=== PATIENT | female | born 1980 | race Caucasian/White ===

== ENCOUNTER 2016-03-23 13:54 | Day surgery (SDC) | payer OTHER ==
[~2016-03-23] VITALS: Ht 172.7 cm; Wt 70.0 kg
[2016-03-23] VITALS (10 sets, daily range): BP systolic 107–134; BP diastolic 57–73; PULSE 79–127; RESP 13–24; O2SAT 96–100
--- NOTE | 2016-03-23 07:02 | PCM.HPANE ---
Patient Data Surgeon Admitting Provider: Attending Provider:Alfredo Harrington MD Primary Care Physician:Tiesha Infante PA-C Other Provider:Frances Forbes Anesthesia Reason for Visit Epigastric Pain Ht/WT & BMI Body Mass Index Allergies Coded Allergies: hydromorphone (Verified Allergy, Severe, 01/05/09) iodine (Verified Allergy, Severe, 01/05/09) latex (Verified Allergy, Severe, 01/05/09) morphine (Verified Allergy, Severe, PT STATES THAT IT "ITCHES HER FACE OFF ", 01/05/09) Uncoded Allergies: EXPECTORANTS (Allergy, Severe, 12/29/03) Iodine (Allergy, Severe, 12/29/03) Latex (Allergy, Severe, 12/29/03) Morphine (Allergy, Severe, 12/29/03) IODINE (Allergy, Unknown, 12/29/03) NKA (Allergy, Unknown, 12/29/03) Medications Reported Medications Diazepam (Valium)10 Mg Kxswwr03 Mg PO TID PRN For Anxiety 30 Days Ref 0 03/22/16 Tramadol ER 300 Mg Tab.er.16y190 Mg PO HS Ref 0 03/22/16 oxyCODONE-Acetaminophen 10-325 mg 1 Each Tablet1 Tablet PO Q6H PRN For Pain Ref 0 03/22/16 Omeprazole 40 Mg Capsule.dr40 Mg PO DAILY Ref 0 03/22/16 Methylphenidate HCl (Methylphenidate HCl ER)30 Mg Cpbp.30.7030 Mg PO 03/22/16 hydrOXYzine Hcl (HydrOXYzine Hcl)25 Mg Htlpta27 Mg PO TID PRN For Itching Ref 0 03/22/16 Clindamycin Phosphate (Clindamycin Phosphate Gel)30 Gm Gel..gram.1 Applic TP BID #30 GM Ref 0 03/22/16 Ciclopirox Olamine (Ciclopirox)15 Gm Cream..g.15 Gm TP 03/22/16 Cholecalciferol (Vitamin D3) (Vitamin D3)5,000 Unit Tablet5,000 Unit PO 03/22/16 Cetirizine HCl (Zyrtec)10 Mg Piquuzu52 Mg PO HS #30 CAPSULE Ref 0 03/22/16 Discontinued Reported Medications Terbinafine 250 Mg Knunkw174 Mg PO DAILY 03/22/16 Stop/Bang Risk Assessment Category Category 1A: Patient has history of documented sleep apnea, and HAS NOT received any narcotic, sedative or anesthesia administration during this stay. Category 1B: Patient has history of documented sleep apnea, and HAS received any narcotic , sedative or anesthesia administration during this stay Category 2: Patient has SUSPECTED Obstructive Sleep Apnea, and HAS received any narcotic , sedative or anesthesia administration during this stay. Category 3: Patient has SUSPECTED Obstructive Sleep Apnea and HAS NOT received narcotic, sedative or anesthesia administration during this stay. Category 4: Outpatient in Procedural Areas with known sleep apnea or who screen positive for High Risk via the STOP/BANG questionnaire. Exam Exam General Appearance: Alert, Oriented X3, Cooperative HEENT/AIRWAY: MP 2, Neck Movement (FROM), Mouth Opening (WNL) Lungs: Clear to Auscultation Heart: Exam Unremarkable Plan Impression Patient chart reviewed, patient interviewed and anesthestic plan with risks, benefits, and alternatives discussed, and informed consent obtained. ASA Physical Status: ASA2 Mod Systemic Disease Anesthetic Plan: GA Bene/Risks/Altern/Consents: Yes HP Complete Prior to Induction: Yes Dez Vanegas MD Mar 23, 2016 07:01
[~2016-03-23 13:54] MED LIST: CETI10CA PO; CHOL500011 PO; CICL15CR12 TP; CLIN30GE2 TP; DIAZ10TA PO; HYDR-656 PO; Lactated Ringer's 1,000 ML IV ONE; METH30CP PO; OMEP40CA36 PO; OXYC-466 PO; TERB250T11 PO; TRAM300T17 PO
[2016-03-23] MEDS ORDERED: Propofol 10,000 mCg/mL 20 mL Inj ONE (13:55)
[2016-03-23] MEDS ORDERED: fentaNYL-PF 50 mCg/mL 2 mL Inj ONE (13:55)
[2016-03-23] MEDS ORDERED: Ketamine 10 mg/mL 20 mL Inj ONE (13:55)
[2016-03-23] MEDS ORDERED: Lactated Ringer's 1,000 ML IV SCH (14:36)
[2016-03-23] MEDS ORDERED: MetoCLOpramide 5 mg/mL 2 mL Inj IVPUSH PRN (14:40)
[2016-03-23] MEDS ORDERED: Ondansetron 2 mg/mL 2 mL Inj IVPUSH PRN (14:40)
--- NOTE | 2016-03-23 15:26 | PCM.ANEP1 ---
Post Anesthesia Phase 1 PACU Phase 1 Assessment Vital Signs Vital Signs Date Time Temp Pulse Resp B/P Pulse Ox O2 Delivery O2 Flow Rate FiO2 03/23/16 15:22 95 14 114/70 98 Room Air 03/23/16 15:13 93 16 116/68 98 Room Air 03/23/16 15:02 79 16 116/62 96 Room Air 03/23/16 14:29 86 120/57 100 Room Air Anesthetic Administered: GA Level of Alertness: Awake, talking POLLOCK's with Equal Strength: Yes Pain: No Nausea or Vomiting: No Oxygen Delivery: Room Air Lungs: Clear to Auscultation Dez Vanegas MD Mar 23, 2016 15:26
--- NOTE | 2016-03-23 15:27 | PCM.ANEP2 ---
Post Anesthesia Evaluation ASA/CMS Post Anesthesia VS in Patient's Normal Range?: Yes Resp Stable; Airway Patent?: Yes CV Function & Hydration Stable: Yes Mental Status Recovered?: Yes Pain control Satisfactory?: Yes N/V Control Satisfactory?: Yes Dez Vanegas MD Mar 23, 2016 15:27
--- NOTE | 2016-03-23 15:50 | ENDO ---
[address] [address] ENDOSCOPY PROCEDURE PATIENT: MICHELE ORTIZ : 1980 MR#: [id number] ADMIT: 03/23/2016 JOB ID: [id number] DATE: 03/23/2016 PROCEDURE: Esophagogastroduodenoscopy. INDICATION: Epigastric pain. Please see Dr. Dez Vanegas' anesthesia report for details regarding ASA classification, Mallampati score and medications. INSTRUMENT USED: GIF H 180 J. PROCEDURE DETAILS: After informed consent was obtained, the patient was brought into the GI suite, where she was placed on oxygen via nasal cannula and monitored with continuous pulse oximeter, telemetry and blood pressure monitoring. A time-out was performed. Then, she was placed in a left lateral decubitus position. A bite block was placed. The standard EGD scope was inserted through the bite block and advanced under direct visualization to the second portion of duodenum without difficulty. FINDINGS: 1. Normal appearing duodenal bulb, first and second portion. Multiple random biopsies were obtained to evaluate for possibility of celiac disease. 2. Normal-appearing pylorus. In the antrum and body of the stomach, there were a few erosions. Multiple biopsies were obtained. 3. The mucosa in the antrum and body of stomach was mildly erythematous suggestive of mild gastritis. 4. Retroflexed views the gastric body revealed a normal-appearing cardia and fundus. 5. Normal-appearing GE junction with a regular Z-line at 41 cm. 6. Normal-appearing esophagus. IMPRESSION: Mild gastritis with erosions. RECOMMENDATIONS: 1. Await biopsy results. 2. Continue PPI. 3. Follow up in GI clinic in 2-4 weeks. COMPLICATIONS: None. ESTIMATED BLOOD LOSS: Less than 5 mL.
--- NOTE | 2016-03-27 12:16 | PATH ---
SURGICAL PATHOLOGY Attending Physician:Manuela Smith CASE STATUS: Signed Out PATIENT NAME: MICHELE JUAREZ PID: [id number] : 1980 DATE COLLECTED:03/23/2016 00:00 SPECIMEN: 1: Duodenum, Biopsy 2: Gastric, Biopsy CLINICAL HISTORY: A: DUODENUM BIOPSY B: RANDOM GASTRIC BIOPSY FINAL DIAGNOSIS: 1.DUODENUM BIOPSY: CHANGES OF MILD CHRONIC DUODENITIS WITH AREAS OF FOVEOLAR METAPLASIA. Negative for evidence of celiac disease. Negative for dysplasia and malignancy. 2.RANDOM GASTRIC BIOPSIES: DIFFUSE MILD TO MODERATE CHRONIC GASTRITIS INVOLVING ANTRAL AND FUNDIC MUCOSA. Negative for evidence of Helicobacter. Negative for intestinal metaplasia. Negative for dysplasia and malignancy. ICD10 code K29.70 GROSS DESCRIPTION: The specimen is received in two formalin filled containers labeled with the patient's name. 1). The specimen is sublabeled "duodenum" and consists of multiple fragments of tissue which aggregate to 0.6 0.6-0.3 CM. The specimen is entirely submitted in cassette 1A. 2). The specimen is sublabeled "random gastric" and consists of 4 portions of tissue which aggregate to 0.7 x 0.4 x 0.3 CM. The specimen is entirely submitted in cassette 2A. 03/24/2016 [facility] MICRO DESCRIPTION: See diagnosis. ICD-9 CODES: CPT CODES: 1: 48791 2: 21743, 66890 PROCEDURE/ADDENDA: Immunohistochemistry SPI Interpretation {Not Entered} Results-Comments An immunohistochemical stain for Helicobacter was performed to evaluate for infectious organisms and is negative. A control stain showed appropriate reactivity. This test was developed and its performance characteristics determined by [facility]. It has not been cleared or approved by the [place]. S. Food and Drug Administration. The FDA has determined that such clearance or approval is not necessary. This test is used for clinical purposes. It should not be regarded as investigational or for research. Electronically Signed Out Cindy Petty MD Electronically Signed Out Klever Carrizales MD [facility] Pathology [facility] [address], [place] [address] Technical component performed at [facility], [address], [place], [address]
== END 2016-03-23 23:59 | disposition home or self-care (01) ==
LOC: END 13:54
PROVIDERS: ATTEND Internal Medicine Gastroenterology
DX: K29.50 Unspecified chronic gastritis without bleeding (principal); K29.80 Duodenitis without bleeding
CPT/HCPCS: 43239; J2250; J7120

== ENCOUNTER 2016-05-11 14:30 | Day surgery (SDC) | payer OTHER ==
[~2016-05-11] VITALS: Ht 172.7 cm; Wt 73.0 kg
[~2016-05-11 14:30] MED LIST changes: -TERB250T11 PO
[2016-05-11] MEDS ORDERED: Propofol 10,000 mCg/mL 20 mL Inj ONE (14:31)
[2016-05-11] MEDS ORDERED: fentaNYL-PF 50 mCg/mL 2 mL Inj ONE (14:31)
[2016-05-11 14:59] VITALS: BP 107/66; PULSE 86; RESP 16; O2SAT 98
[2016-05-11] MEDS ORDERED: [UNRECOGNIZED DRUG - OTHER] (14:59)
[2016-05-11] MEDS ORDERED: 0.9% Sodium Chloride 1,000 ML ONE (15:39)
--- NOTE | 2016-05-11 15:48 | PCM.HPANE ---
Patient Data Date of Service: May 11, 2016 (1336) Surgeon Admitting Provider: Attending Provider:Alfredo Harrington MD Primary Care Physician:Tiesha Infante PA-C Other Provider:Frances Forbes Anesthesia Reason for Visit Epigastric Pain Ht/WT & BMI Height (Feet): 5 Height (Inches): 8 Weight (Kilograms): 73 Body Mass Index 24.00 Allergies Coded Allergies: hydromorphone (Verified Allergy, Severe, 05/10/16) iodine (Verified Allergy, Severe, 05/10/16) ketamine (Verified Allergy, Severe, "LOCKED INSIDE" CAN'T COMMUNICATE, 05/11) latex (Verified Allergy, Severe, 05/10/16) morphine (Verified Allergy, Severe, PT STATES THAT IT "ITCHES HER FACE OFF ", 05/10/16) Uncoded Allergies: EXPECTORANTS (Allergy, Severe, 12/29/03) Iodine (Allergy, Severe, 12/29/03) Latex (Allergy, Severe, 12/29/03) Morphine (Allergy, Severe, 12/29/03) IODINE (Allergy, Unknown, 12/29/03) NKA (Allergy, Unknown, 12/29/03) Past Anesthesia History Anesthesia History: Denies:: Abnormal Airway, Anesthesia Reactions (TACHY), Difficult Intubation, Fam Anesthesia Reaction, Fam Malignant Hypertherm, Malignant Hyperthermia Diabetes History Hx Diabetes?: No MRSA MRSA: No Medications Reported Medications [Cannabus Edibles] No Conflict Check 05/11/16 Diazepam (Valium)10 Mg Mjywun23 Mg PO TID PRN For Anxiety 30 Days Ref 0 03/22/16 Tramadol ER 300 Mg Tab.er.64s277 Mg PO HS Ref 0 03/22/16 oxyCODONE-Acetaminophen 10-325 mg 1 Each Tablet1 Tablet PO Q6H PRN For Pain Ref 0 03/22/16 Methylphenidate HCl (Methylphenidate HCl ER)30 Mg Cpbp.30.7030 Mg PO 03/22/16 hydrOXYzine Hcl (HydrOXYzine Hcl)25 Mg Fvbqye43 Mg PO TID PRN For Itching Ref 0 03/22/16 Clindamycin Phosphate (Clindamycin Phosphate Gel)30 Gm Gel..gram.1 Applic TP BID #30 GM Ref 0 03/22/16 Ciclopirox Olamine (Ciclopirox)15 Gm Cream..g.15 Gm TP 03/22/16 Cholecalciferol (Vitamin D3) (Vitamin D3)5,000 Unit Tablet5,000 Unit PO 03/22/16 Cetirizine HCl (Zyrtec)10 Mg Wkhnkze43 Mg PO HS #30 CAPSULE Ref 0 03/22/16 Discontinued Reported Medications Omeprazole 40 Mg Capsule.dr40 Mg PO DAILY Ref 0 03/22/16 History History of ENT Problems?: No HEENT History: Denies:: Abnormal Airway Difficult Intubation Dysphagia Hx of Heart Problems?: No Cardiovascular History: Denies:: AICD Pacemaker Valvular Heart Disease Hx of Respiratory Problem?: No Neurological History: Denies:: CVA Gastrointestinal History: Positive for:: Gastroesphageal Reflux (OMEPRAZOLE) Rectal Bleeding Denies:: Cirrhosis Diverticulitis Hiatal Hernia Female Hx: Denies:: Currently (TUBAL) Musculoskeletal History: Denies:: Joint Replacement Psycho Social History: Positive for:: Anxiety Hx Depression Hx Surgeries?: Yes (L PINKY, R WRIST, R ULNER NERVE, R NERVE BLOCK, R NECK TRIGGER, TUBAL, LAP ) Hx Any Other Health Problems?: Yes Hx Diabetes: No Hx Alcohol Use: Yes (VERY SELDOM) Smoking Status: Light Tobacco Smoker Stop/Bang Treated for Sleep Apnea?: No Do You Have a CPAP Machine?: No S-Snoring: Do You Snore Loudly: No T-Tired: feel tired, fatigued: No O-Obsered: Observed not breath: No P-Blood Pressure: treated: No B- Body Mass Index > 35 kg/m2: No A- Age over 50: No N- Neck Large Circumference: No G- Gender Male: No SAMMI Total Score: 0 SAMMI Risk Assessment: Low Risk, <3 Yes Risk Assessment Category Category 1A: Patient has history of documented sleep apnea, and HAS NOT received any narcotic, sedative or anesthesia administration during this stay. Category 1B: Patient has history of documented sleep apnea, and HAS received any narcotic , sedative or anesthesia administration during this stay Category 2: Patient has SUSPECTED Obstructive Sleep Apnea, and HAS received any narcotic , sedative or anesthesia administration during this stay. Category 3: Patient has SUSPECTED Obstructive Sleep Apnea and HAS NOT received narcotic, sedative or anesthesia administration during this stay. Category 4: Outpatient in Procedural Areas with known sleep apnea or who screen positive for High Risk via the STOP/BANG questionnaire. Exam Exam Vital Signs Vital Signs Date Time Temp Pulse Resp B/P Pulse Ox O2 Delivery O2 Flow Rate FiO2 05/11/16 14:59 37.6 86 16 107/66 98 Room Air General Appearance: Alert, Oriented X3 HEENT/AIRWAY: MP 1 Lungs: Clear to Auscultation Heart: Exam Unremarkable Meds/Labs/Diagnostics Admission Meds Current Medications Lactated Ringer's (Lr) 1,000 ml @ 10 mls/hr Q24H ONCE IV Last administered on 05/11/16t 15:37; Start 05/11/16 at 06:00; Stop 05/12/16 at 05:59 Plan Impression Patient chart reviewed, patient interviewed and anesthestic plan with risks, benefits, and alternatives discussed, and informed consent obtained. NPO Status: >8hrs ASA Physical Status: ASA2 Mod Systemic Disease Anesthetic Plan: GA Bene/Risks/Altern/Consents: Yes HP Complete Prior to Induction: Yes Beka Bob MD May 11, 2016 15:48
[2016-05-11] MEDS ORDERED: Lactated Ringer's 1,000 ML IV SCH (15:49)
[2016-05-11] MEDS ORDERED: Ondansetron 2 mg/mL 2 mL Inj IVPUSH PRN (15:50)
[2016-05-11] MEDS ORDERED: MetoCLOpramide 5 mg/mL 2 mL Inj IVPUSH PRN (15:50)
[2016-05-11 16:13] VITALS: BP 93/54; PULSE 78; RESP 12; O2SAT 97
--- NOTE | 2016-05-11 16:14 | PCM.ANEP1 ---
Post Anesthesia Phase 1 PACU Phase 1 Assessment Date of Service: May 11, 2016 (4741) Vital Signs 36.3, 93/54, 79, 97%, 16 Vital Signs Date Time Temp Pulse Resp B/P Pulse Ox O2 Delivery O2 Flow Rate FiO2 05/11/16 14:59 37.6 86 16 107/66 98 Room Air Anesthetic Administered: GA Level of Alertness: Sleeping, hard to arouse POLLOCK's with Equal Strength: Yes Pain: No Nausea or Vomiting: No Oxygen Delivery: Room Air Lungs: Clear to Auscultation Dermatome Level: Full Sensation Summary uneventful sedation Beka Bob MD May 11, 2016 16:14
--- NOTE | 2016-05-11 16:15 | PCM.ANEP2 ---
Post Anesthesia Evaluation ASA/CMS Post Anesthesia VS in Patient's Normal Range?: Yes Resp Stable; Airway Patent?: Yes CV Function & Hydration Stable: Yes Mental Status Recovered?: Yes Pain control Satisfactory?: Yes N/V Control Satisfactory?: Yes Beka Bob MD May 11, 2016 16:15
[2016-05-11 16:22] VITALS: BP 104/59; PULSE 83; RESP 14; O2SAT 98
[2016-05-11 16:32] VITALS: BP 106/63; PULSE 76; RESP 14; O2SAT 100
--- NOTE | 2016-05-11 23:44 | ENDO ---
[address] [address] ENDOSCOPY PROCEDURE PATIENT: MICHELE JUAREZ : 1980 MR#: [id number] ADMIT: 05/11/2016 JOB ID: [id number] DATE OF PROCEDURE: PROCEDURE: Colonoscopy. INDICATION: Abdominal pain. SEDATION: Patient's ASA classification, Mallampati score, and medications as per anesthesia note. INSTRUMENT USED: PCF-H190L. PREPARATION QUALITY: Was fair. PROCEDURE DETAILS: After informed consent was obtained, the patient was brought into the GI suite, where she was placed on oxygen via nasal cannula and monitored with continuous pulse oximeter, telemetry, and blood pressure monitoring. A time-out was performed. Then, she was placed in the left lateral decubitus position. Medications were administered for sedation. Digital rectal exam was performed which was unremarkable. The colonoscope was then inserted into the rectum and advanced under direct visualization to the terminal ileum, which was identified by the presence of the ileocecal valve and villous appearing mucosa of terminal ileum. Once the terminal ileum was reached, the colonoscope was withdrawn back to the rectum. The mucosa and lumen were examined. In the rectum, retroflexion was performed. Following retroflexion, remaining air in the rectum was suctioned, and procedure was completed. FINDINGS: 1. Normal exam from rectum to terminal ileum. 2. Multiple random biopsies were obtained in the terminal ileum. IMPRESSION: Normal colonoscopy. RECOMMENDATIONS: 1. Await biopsy results. 2. Schedule patient for capsule endoscopy for further evaluation of abdominal pain. COMPLICATIONS: None. ESTIMATED BLOOD LOSS: Less than 5 mL.
--- NOTE | 2016-05-15 15:50 | PATH ---
SURGICAL PATHOLOGY Attending Physician:Manuela Smith CASE STATUS: Signed Out PATIENT NAME: MICHELE JUAREZ PID: [id number] : 1980 DATE COLLECTED:05/11/2016 00:00 SPECIMEN: Ileum, Biopsy CLINICAL HISTORY: ABDOMINAL PAIN 1). TERMINAL ILEUM BIOPSY FINAL DIAGNOSIS: Terminal Ileum, Biopsy: Small bowel mucosa with no diagnostic abnormality. Negative for active inflammation, dysplasia and malignancy. ICD10: R10.9 GROSS DESCRIPTION: The specimen is received in one formalin filled container labeled with the patient's name, sublabeled "TI" and consists of 2 portions of tissue which aggregate to 0.2 x 0.2 x 0.2 CM. The specimen is entirely submitted in one cassette. 05/12/2016 [facility] ICD-9 CODES: CPT CODES: 1: 06802 Electronically Signed Out Cindy Petty MD [facility] Pathology [facility] [address], [place] [address] Technical component performed at [facility], [address] [place] [address] [address], [address]
== END 2016-05-11 23:59 | disposition home or self-care (01) ==
LOC: END 14:30
PROVIDERS: ATTEND Internal Medicine Gastroenterology
DX: R10.13 Epigastric pain (principal); G89.29 Other chronic pain; F17.210 Nicotine dependence, cigarettes, uncomplicated; Z79.899 Other long term (current) drug therapy
CPT/HCPCS: 45380; 88305; J2250; J3010; J7030

== ENCOUNTER 2016-07-25 15:30 | Emergency (ER) | payer OTHER ==
[~2016-07-25] VITALS: Ht 172.7 cm; Wt 70.5 kg
[~2016-07-25 15:30] MED LIST changes: -Lactated Ringer's 1,000 ML IV ONE; -OMEP40CA36 PO; +[UNRECOGNIZED DRUG - OTHER]
[2016-07-25 15:50] VITALS: BP 117/74; PULSE 109; RESP 14; O2SAT 98
--- NOTE | 2016-07-25 17:22 | ED.REPORT ---
HPI-Abd Pain F Under 40 Date of Service July 25, 2016 ED Provider: Abad Valencia MD The patient is a 35 year old female who was sent to the emergency department by Dr. Rubio. The patient has not had a bowel movement in 4 days. The patient states she has not passed any stool or gas from the rectum for at least 4 days. Prior to this she was having blood stools. She also complains of generalized weakness, fatigue, lower abdominal pain radiating through to her back, nausea, vomiting, intermittent fever, and decreased urination (1 small cup in the last 3 days). She was seen at [facility] on Sunday and was sent home on stool softeners. The patient has had severe upper abdominal pain for the last 1.5 years. She has had an extensive workup that included: colonoscopy, endoscopy, and pill cam. There have been no conclusive findings at this time. She has been taking oxycodone 10 mg, Valium 10 mg, and a muscle relaxer every 4-6 hours for pain. Her last doses were just prior to arrival. The patient has been on narcotic pain medications for the last 3 months ago. She is not currently . Nursing Notes Stated Complaint: INTERNAL BLEEDING, NO BM IN 4 DAYS (BLOODY STOOLS) Chief Complaint: Female Abdominal Pain Nursing Notes Reviewed: Yes Allergies: Coded Allergies: hydromorphone (Verified Allergy, Severe, 05/10/16) iodine (Verified Allergy, Severe, 05/10/16) ketamine (Verified Allergy, Severe, "LOCKED INSIDE" CAN'T COMMUNICATE, 05/11) latex (Verified Allergy, Severe, 05/10/16) morphine (Verified Allergy, Severe, PT STATES THAT IT "ITCHES HER FACE OFF ", 05/10/16) Uncoded Allergies: EXPECTORANTS (Allergy, Severe, 12/29/03) Iodine (Allergy, Severe, 12/29/03) Latex (Allergy, Severe, 12/29/03) Morphine (Allergy, Severe, 12/29/03) IODINE (Allergy, Unknown, 12/29/03) NKA (Allergy, Unknown, 12/29/03) Scheduled Cetirizine HCl (Zyrtec) 10 Mg Capsule 10 MG PO HS Clindamycin Phosphate (Clindamycin Phosphate Gel) 30 Gm Gel..gram. 1 APPLIC TP BID Tramadol ER (Tramadol ER) 300 Mg Tab.er.24h 300 MG PO HS Scheduled PRN Diazepam (Valium) 10 Mg Tablet 10 MG PO TID PRN PRN For Anxiety hydrOXYzine Hcl (HydrOXYzine Hcl) 25 Mg Tablet 25 MG PO TID PRN PRN For Itching oxyCODONE-Acetaminophen 10-325 mg (oxyCODONE-Acetaminophen 10-325 mg) 1 Each Tablet 1 TABLET PO Q6H PRN PRN For Pain Miscellaneous Medications ([Cannabus Edibles]) Cholecalciferol (Vitamin D3) (Vitamin D3) 5,000 Unit Tablet 5,000 UNIT PO Ciclopirox Olamine (Ciclopirox) 15 Gm Cream..g. 15 GM TP Methylphenidate HCl (Methylphenidate HCl ER) 30 Mg Cpbp.30.70 30 MG PO General Time Seen by MD: 17:21 Chief Complaint Other (rectal bleeding) Hx Obtained From: Patient, Spouse, Other family... Arrived By: Walk-in Sudden in Onset?: No Onset Occurred: More than a week ago... Symptom Duration: Intermittent Progression since Onset: Intermittent Location: : Abdomen lower Quality: Painful Severity: Current: Moderate Severity: Maximum: Severe Recent Healthcare: Recent doctor visit Similar Sx Previous: Yes Past Medical History Past Medical History "liver hematomas" "lesions on kidneys" Celiac autoimmune Severe upper abdominal pain x1.5 years, with an extensive workup. Past Surgical History Endoscopy Colonscopy Surgery after IUD complication Reports: Cholecystectomy Reports: Tubal ligation Family History Noncontributory Smoking History Current Every Day Smoker, Light Tobacco Smoker Social History Other Social History: Good social support, , Lives with children, Local resident Ambulatory Status Independent Review of Systems Constitutional: Reports: Fatigue, Fever (intermittent), Weakness - generalized GI: Reports: Abdominal pain, Bloody/tarry stool, Constipation, Hematochezia, Nausea, Vomiting Female: Denies: Musculoskeletal: Reports: Back pain Complete sys rev & neg: except as marked. Physical Exam Initial Vital Signs Vital Signs (First) Date Time Temp Pulse Resp B/P Pulse Ox O2 Delivery O2 Flow Rate FiO2 07/25/16 15:50 36.5 109 14 117/74 98 Room Air Initial VS: Reviewed Head / Eyes: Atraumatic, Normocephalic, PERRL ENT: Mucous membranes moist, Conjunctiva normal, No scleral icterus Neck: Supple, Non-tender, Full range of motion Lymphatic: No lymphadenopathy Extremities: Vascular intact, Neuro intact, No swelling, No tenderness Skin: Warm, Dry, No cyanosis Neurologic: Alert, Oriented, Nonfocal Psychiatric: Mood/affect normal, Behavior normal, Normal thought content General/Constitutional: Awake, Alert, Cooperative Respiratory / Chest: Atraumatic, Breath sounds NL, Breath sounds = bilat, No respiratory distress, No rales, No rhonchi, No wheezing Cardiovascular: Heart rate NL, Regular rhythm, Heart sounds NL, No murmurs, No rubs, Peripheral circulation NL Abdomen: Soft, No guarding, No rebound, BS normoactive, No distention, No hernia, No palpable mass, No pulsatile mass Very tender to minimal touching of the abdomen. Rectum / Perineum: Atraumatic, No gross blood, No fecal impaction Interpretation & Diagnostics Lab Results Interpretation Result Diagram: 07/25/16 1838 07/25/16 1838 Test 07/25/16 17:56 07/25/16 18:07 07/25/16 18:38 Hold Urine Received (Received) Urine Color Yellow (YELLOW) Urine Appearance Clear (CLEAR,HAZY) Urine pH 6.0 (5.0-8.0) Urine Specific [place] 1.020 (1.003-1.035) Urine Protein Negativemg/dL (NEG,TRACE) Urine Glucose (UA) Negativemg/dL (NEGATIVE) Urine Ketones Negativemg/dL (NEGATIVE) Urine Occult Blood Negative (NEGATIVE) Urine Nitrite Negative (NEGATIVE) Urine Bilirubin Negative (NEGATIVE) Urine Urobilinogen Normalmg/dL (NORMAL) Urine Leukocyte Esterase Negative (NEGATIVE) Urine RBC 0-2/hpf (0-2) Urine WBC 0-5/hpf (0-5) Urine Epithelial Cells Few/hpf (NONE-MOD) Urine Crystals None seen (NONE SEEN) Urine Bacteria Few/hpf (NONE-FEW) Urine Hyaline Casts None/lpf (NONE) Urine Granular Casts None seen (NONE SEEN) Urine Waxy Casts None seen (NONE SEEN) Urine Red Blood Cell Casts None seen (NONE SEEN) Urine White Blood Cell Casts None seen (NONE SEEN) Urine Mucus None seen (None Seen) Urine Trichomonas None seen (NONE SEEN) Urine Yeast None (NONE SEEN) Urinalysis Comment None Urine Culture Reflexed Not indicated White Blood Count 11.5th/mm3 (3.8-10.1) Red Blood Count 4.56mil/mm3 (3.90-5.20) Hemoglobin 13.8g/dL (12.0-15.6) Hematocrit 40.8% (35.0-46.0) Mean Corpuscular Volume 89.5fL (81-100) Mean Corpuscular Hemoglobin 30.3pg (27.0-35.0) Mean Corpuscular Hemoglobin Concent 33.8% (32.0-37.0) Red Cell Distribution Width 12.7% (12.3-15.4) Platelet Count 262bil/L (150-400) Neutrophils (%) (Auto) 74.5% (40-74) Lymphocytes (%) (Auto) 18.2% (14-46) Monocytes (%) (Auto) 4.1% (4-12) Eosinophils (%) (Auto) 2.7% (0-5) Basophils (%) (Auto) 0.3% (0-3) Sodium Level 140mEq/L (134-144) Potassium Level 4.4mEq/L (3.5-5.2) Chloride Level 103mEq/L (97-108) Carbon Dioxide Level 25mmol/L (18-29) Blood Urea Nitrogen 11mg/dL (6-20) Creatinine 0.55mg/dL (0.57-1.00) Estimat Glomerular Filtration Rate 180mL/min (>59) Glucose Level 92mg/dL (60-99) Calcium Level 9.3mg/dL (8.5-10.1) Total Bilirubin 0.3mg/dL (0.0-1.2) Aspartate Amino Transf (AST/SGOT) 26U/L (0-50) Alanine Aminotransferase (ALT/SGPT) 37U/L (0-32) Alkaline Phosphatase 47U/L (25-150) Total Protein 6.1g/dL (6.4-8.4) Albumin 3.7g/dL (3.4-5.0) Hold Reyna Top Tube Received (Received) X-Ray Abdominal Interpretation IMPRESSION: No radiographic explanation for abdominal pain. Dictated by: Christopher Lakhani M.D. on 07/25/2016 at 18:34 Interpretation / Wet Read by: Interpret - Radiologist Re-Eval/Medical Decision Source of Hx: Old records, Family Re-Evaluation/Progress : Time of Eval: 19:27 Re-Evaluation/Progress Note: Rechecked the patient. Discussed plan for discharge. All questions were addressed. Consultation : Referral / Consult Name: Bebeto Rubio MD Consulted With: Surgeon Requested Call at: 17:42 Call Returned at: 17:51 Regulatory Affairs Consultant: Agrees with eval, Agrees with plan Note: He is willing to help if this is a surgical problem. Counseled Regarding: Diagnosis, Lab results, Need for follow-up, When/why to return to ED Discharge & Departure Primary Impression: Abdominal pain Abdominal location: generalized Qualified Code: R10.84 - Generalized abdominal pain Additional Impression: Constipation Constipation type: unspecified constipation type Qualified Code: K59.00 - Constipation, unspecified Disposition: Home Discharge Condition All VS Reviewed: Yes Condition: Stable Patient Instructions: Acute Abdominal Pain (ED) Additional Instructions: Thank you for entrusting us with your care today. Your workup today included: blood work, urinalysis, and an abdominal x-ray. All of the results are reassuring. Make sure to drink fluids as tolerated. Followup with your regular doctor tomorrow for further evaluation and a discussion regarding pain management. If you are having trouble making that appointment, please call me. To address the constipation I recommend: First take one full bottle of magnesium citrate approximately 10 ounces. If after 12 hours there is not a resolution of her symptoms I recommend SuPrep up as prescribed. Seek care for increased pain, inability to keep fluids down, or any other new or concerning symptoms. Referrals: Tiesha Infante PA-C (PCP) Scribe Attestation Portions of this note were transcribed by Holly Kelley. I, Dr. Valencia personally performed the history, physical exam and medical decision-making; I reviewed and confirmed the accuracy of the information in the transcribed note. Signed by: Misha Pena, 07/25/2016 at 2000. copies to: Tiesha Infante PA-C, Kirk H MD July 25, 2016 17:22 Holly Kelley July 25, 2016 17:28
[2016-07-25] MEDS ORDERED: 0.9% Sodium Chloride 1,000 ML IV ONE (18:04)
[2016-07-25] MEDS ORDERED: Pantoprazole 4 mg/mL 10 mL Inj IVPUSH ONE (18:05)
[2016-07-25 18:21] LABS: APPEARANCE,URINE CLEAR (CLEAR,HAZY); COLOR,URINE YELLOW (YELLOW); OCCULT BLOOD,URINE NEGATIVE (NEGATIVE); UROBILINOGEN,URINE NORMAL (NORMAL)
--- NOTE | 2016-07-25 18:43 | DRSVH ---
PROCEDURE: X-RAY ACUTE ABDOMINAL SERIES ([id number]) INDICATIONS: 35 year-old female with abdominal pain. TECHNIQUE: One view chest and two views of the abdomen were acquired. COMPARISON: [facility], CT, ABDOMEN/PELVIS WITHOUT CONTRAS, 07/20/2016, 12:38. FINDINGS: Surgical changes and devices: Patient is status post cholecystectomy. Chest: Lungs are clear. Heart size is normal. No pleural effusions. No pneumoperitoneum. Abdomen: Bowel gas pattern is normal, with residual CT oral contrast now within the distal colon. N o suspicious calcifications. Visualized solid organ contours appear normal. Bones: No suspicious bony lesions. IMPRESSION: No radiographic explanation for abdominal pain. Dictated by: Christopher Lakhani M.D. on 07/25/2016 at 18:34 Approved by: Christopher Lakhani M.D. on 07/25/2016 at 18:36
[2016-07-25] MEDS: Ondansetron 2 mg/mL 2 mL Inj IVPUSH PRN ×2 (18:46→19:23)
[2016-07-25 18:54] LABS: BASOPHILS % (AUTO) 0.3 % (0-3); EOSINOPHILS % (AUTO) 2.7 % (0-5); MONOCYTES % (AUTO) 4.1 % (4-12); Mean Corpuscular Hemoglobin 30.3 pg (27.0-35.0); Mean Corpuscular Volume 89.5 fL (81-100); NEUTROPHILS % (AUTO) 74.5 % (40-74); Platelet Count 262 bil/L (150-400)
[2016-07-25] MEDS ORDERED: SODI354S PO (19:38)
[2016-07-25 20:05] VITALS: BP 120/72; PULSE 100; RESP 16; O2SAT 99
== END 2016-07-25 20:06 | disposition home or self-care (01) ==
LOC: SED 15:30
DX: R10.84 Generalized abdominal pain (principal); K59.00 Constipation, unspecified; F17.200 Nicotine dependence, unspecified, uncomplicated; Z90.49 Acquired absence of other specified parts of digestive tract; Z88.5 Allergy status to narcotic agent; Z88.8 Allergy status to other drugs, medicaments and biological substances; Z91.040 Latex allergy status
CPT/HCPCS: 36415; 74022; 80053; 81000; 85025; 96361; 96374; 96375; 96376; 99285; J2405; J7030

== ENCOUNTER 2016-07-30 01:22 | Emergency (ER) | payer OTHER ==
[~2016-07-30] VITALS: Ht 172.7 cm; Wt 73.2 kg
[~2016-07-30 01:22] MED LIST changes: +SODI354S PO
[2016-07-30 01:24] VITALS: BP 123/73; PULSE 96; RESP 16; O2SAT 97
--- NOTE | 2016-07-30 01:47 | ED.REPORT ---
HPI-Abd Pain F Under 40 Date of Service July 30, 2016 ED Provider: Dr. Cornejo Pt is a 35 year old female with a reported history of previous bowel obstructions who presents to the ED by request of the surgeon covering for Dr. Rubio with concerns for a bowel obstruction. Pt reports that she was given colonoscopy prep and has been unable to pass a bowel movement. Pt reports that her last bowel movement was 9 days ago. She reports that she is having severe abdominal discomfort, bloating and nausea and believes that she is having "internal bleeding". Pt reports that she was told that she was unable to get a CT scan due to her iodine allergy. Pt reports that she was recently scoped by Dr. Rubio with no success in finding the source of bleeding. She denies any fevers, chest pain, shortness of breath or any other complaints. Nursing Notes Stated Complaint: ABD PAIN, BOWEL OBSTRUCTION Chief Complaint: Female Abdominal Pain Allergies: Coded Allergies: hydromorphone (Verified Allergy, Severe, 05/10/16) iodine (Verified Allergy, Severe, 05/10/16) ketamine (Verified Allergy, Severe, "LOCKED INSIDE" CAN'T COMMUNICATE, 05/11) latex (Verified Allergy, Severe, 05/10/16) morphine (Verified Allergy, Severe, PT STATES THAT IT "ITCHES HER FACE OFF ", 05/10/16) Uncoded Allergies: EXPECTORANTS (Allergy, Severe, 12/29/03) Iodine (Allergy, Severe, 12/29/03) Latex (Allergy, Severe, 12/29/03) Morphine (Allergy, Severe, 12/29/03) IODINE (Allergy, Unknown, 12/29/03) NKA (Allergy, Unknown, 12/29/03) Scheduled Cetirizine HCl (Zyrtec) 10 Mg Capsule 10 MG PO HS Clindamycin Phosphate (Clindamycin Phosphate Gel) 30 Gm Gel..gram. 1 APPLIC TP BID Sodium,Potassium,&Mag Sulfates (Suprep Bowel Prep Kit) 354 Ml Soln.recon 354 ML PO ONCE Tramadol ER (Tramadol ER) 300 Mg Tab.er.24h 300 MG PO HS Scheduled PRN Diazepam (Valium) 10 Mg Tablet 10 MG PO TID PRN PRN For Anxiety hydrOXYzine Hcl (HydrOXYzine Hcl) 25 Mg Tablet 25 MG PO TID PRN PRN For Itching oxyCODONE-Acetaminophen 10-325 mg (oxyCODONE-Acetaminophen 10-325 mg) 1 Each Tablet 1 TABLET PO Q6H PRN PRN For Pain Miscellaneous Medications ([Cannabus Edibles]) Cholecalciferol (Vitamin D3) (Vitamin D3) 5,000 Unit Tablet 5,000 UNIT PO Ciclopirox Olamine (Ciclopirox) 15 Gm Cream..g. 15 GM TP Methylphenidate HCl (Methylphenidate HCl ER) 30 Mg Cpbp.30.70 30 MG PO General Time Seen by MD: 01:46 Chief Complaint Abdominal pain Hx Obtained From: Patient Arrived By: Walk-in Sudden in Onset?: Yes Onset Occurred: 1 week ago Symptom Duration: Since onset Location: : Diffuse Quality: Painful Severity: Current: Moderate Severity: Maximum: Severe Similar Sx Previous: Yes Past Medical History Past Medical History "liver hematomas" "lesions on kidneys" Celiac autoimmune Severe upper abdominal pain x1.5 years, with an extensive workup. Past Surgical History Endoscopy Colonscopy Surgery after IUD complication Reports: Cholecystectomy Reports: Tubal ligation Family History Noncontributory Smoking History Current Every Day Smoker, Light Tobacco Smoker Social History Other Social History: Good social support, , Lives with children, Local resident Ambulatory Status Independent Review of Systems Constitutional: Denies: Chills, Fever, Malaise, Weakness - generalized GI: Reports: Abdominal pain, Constipation, Nausea, Denies: Diarrhea, Vomiting Female: Denies: Dysuria, Flank pain, Urinary urgency Musculoskeletal: Denies: Back pain, Neck pain Complete sys rev & neg: except as marked. Physical Exam Initial Vital Signs Vital Signs (First) Date Time Temp Pulse Resp B/P Pulse Ox O2 Delivery O2 Flow Rate FiO2 07/30/16 01:24 37 96 16 123/73 97 Room Air Initial VS: Reviewed General/Constitutional: Awake, Alert Appearance / Presentation: Positive: Uncomfortable Respiratory / Chest: Atraumatic, Breath sounds NL, Breath sounds = bilat, No respiratory distress Cardiovascular: Heart rate NL, Regular rhythm, Heart sounds NL, No gallop, No murmurs, No rubs Bowel Sounds / Distention: Positive: Distention moderate Back: Atraumatic, Inspection NL Interpretation & Diagnostics Lab Results Interpretation Result Diagram: 07/30/16 0259 07/30/16 0259 Test 07/30/16 02:59 White Blood Count 9.5th/mm3 (3.8-10.1) Red Blood Count 4.38mil/mm3 (3.90-5.20) Hemoglobin 13.1g/dL (12.0-15.6) Hematocrit 39.1% (35.0-46.0) Mean Corpuscular Volume 89.3fL (81-100) Mean Corpuscular Hemoglobin 29.9pg (27.0-35.0) Mean Corpuscular Hemoglobin Concent 33.5% (32.0-37.0) Red Cell Distribution Width 12.5% (12.3-15.4) Platelet Count 250bil/L (150-400) Neutrophils (%) (Auto) 66.8% (40-74) Lymphocytes (%) (Auto) 19.7% (14-46) Monocytes (%) (Auto) 7.4% (4-12) Eosinophils (%) (Auto) 5.4% (0-5) Basophils (%) (Auto) 0.5% (0-3) Prothrombin Time 9.7sec (8.1-12.5) Prothromb Time International Ratio 0.91ratio Sodium Level 142mEq/L (134-144) Potassium Level 4.1mEq/L (3.5-5.2) Chloride Level 106mEq/L (97-108) Carbon Dioxide Level 23mmol/L (18-29) Blood Urea Nitrogen 16mg/dL (6-20) Creatinine 0.54mg/dL (0.57-1.00) Estimat Glomerular Filtration Rate 184mL/min (>59) Glucose Level 107mg/dL (60-99) Lactic Acid Level 0.7mmol/L (0.4-2.0) Calcium Level 8.9mg/dL (8.5-10.1) Magnesium Level 1.8mg/dL (1.6-2.6) Total Bilirubin 0.2mg/dL (0.0-1.2) Aspartate Amino Transf (AST/SGOT) 15U/L (0-50) Alanine Aminotransferase (ALT/SGPT) 20U/L (0-32) Alkaline Phosphatase 52U/L (25-150) Total Protein 6.0g/dL (6.4-8.4) Albumin 3.7g/dL (3.4-5.0) Lipase 23U/L (13-60) X-Ray Chest Interpretation Chest Xray Interpretation: Pulmonary nodule, right midfield in the middle lobe just at the lower margin in the fissure. View: Portable Interpretation / Wet Read by: Wet read ED physician Re-Eval/Medical Decision Med Decision/Clinical Course Med Decision/Clinical Course: 35-year-old chronic opioid dependency and constipation presents after failing to move her bowels after ingesting a 4 L Colyte prep. She has had some brownish water production to several enemas thus far and is stiffly better than she was on arrival, but has not begun to produce stool definitively at. She was under the miss apprehension that this problem would be transferred to [place] for resolution. She is ultimately dust into have a consult that [place] pending that referral going through, but is not requiring emergent transfer to a tertiary center for her current constipation. We will continue enemas this morning and evaluated further as to whether she needs to be admitted observation status and further measures on the floor, versus being at home. Her additional issues will be followed up in due course per her referral. She is transferred to the morning shift Dr. Gibran Cornejo for further evaluation and management. Source of Hx: Old records Counseled Regarding: Diagnosis, Lab results, Need for follow-up, When/why to return to ED Discharge & Departure Shift Change Sign-Out Response to Therapy: Improved Primary Impression: Constipation Constipation type: drug induced constipation Qualified Code: K59.03 - Drug induced constipation Additional Impressions: Abdominal pain Abdominal location: generalized Qualified Code: R10.84 - Generalized abdominal pain Opioid dependence Complication of substance-induced condition: with unspecified complication Disposition: Home Discharge Condition All VS Reviewed: Yes Condition: Stable Referrals: Tiesha Infante PA-C (PCP) Misha Attestation Portions of this note were transcribed by Elizabeth Portillo. I, Dr. Cornejo personally performed the history, physical exam and medical decision-making; I reviewed and confirmed the accuracy of the information in the transcribed note. Signed by: Misha Redding, 07/29/2016 [Time]. copies to: Tiesha Infante PA-C, Christopher W MD July 30, 2016 01:47 CARIN PORTILLO July 30, 2016 01:54
[2016-07-30] MEDS ORDERED: 0.9% Sodium Chloride 1,000 ML IV ONE (01:57)
[2016-07-30] MEDS: fentaNYL-PF 50 mCg/mL 2 mL Inj IVPUSH PRN ×4 (02:56→04:36)
[2016-07-30 03:33] LABS: INR 0.91 ratio
[2016-07-30 03:38] LABS: BASOPHILS % (AUTO) 0.5 % (0-3); EOSINOPHILS % (AUTO) 5.4 % (0-5); MONOCYTES % (AUTO) 7.4 % (4-12); Mean Corpuscular Hemoglobin 29.9 pg (27.0-35.0); Mean Corpuscular Volume 89.3 fL (81-100); NEUTROPHILS % (AUTO) 66.8 % (40-74); Platelet Count 250 bil/L (150-400)
[2016-07-30 03:49] LABS: Magnesium 1.8 mg/dL (1.6-2.6)
[2016-07-30] MEDS ORDERED: Sodium Biphos-Phos 133 mL Enema RECTAL PRN (03:50)
[2016-07-30] MEDS ORDERED: TRAZ-115 PO (07:17)
[2016-07-30 07:30] VITALS: BP 107/46; PULSE 76; RESP 14; O2SAT 99
[2016-07-30 07:31] VITALS: BP 107/46; PULSE 76; RESP 15; O2SAT 99
--- NOTE | 2016-07-30 09:14 | DRSVH ---
PROCEDURE: X-RAY ACUTE ABDOMINAL SERIES ([id number]) INDICATIONS: abd pain constipation TECHNIQUE: One view chest and two views of the abdomen were acquired. COMPARISON: [facility], CR, XR ABD ACUTE SERIES 3VW, 07/25/2016, 18:03. FINDINGS: Surgical changes and devices: Cholecystectomy clips and bilateral breast piercings. Chest: Lungs are clear. Heart size is normal. No pleural effusions. No pneumoperitoneum. Abdomen: Scattered air fluid levels are noted. The air-fluid levels have differential heights. No ann marie picious calcifications. Visualized solid organ contours appear normal. Bones: No suspicious bony lesions. IMPRESSION: Nonspecific bowel gas pattern. If patient's symptoms persist or worsen, then repeat plain radiographs or CT scan is warranted for further evaluation. Dictated by: Selam Mccrary MD, PhD on 07/30/2016 at 9:11 Approved by: Selam Mccrary MD, PhD on 07/30/2016 at 9:13
== END 2016-07-30 07:35 | disposition home or self-care (01) ==
LOC: SED 01:22
DX: K59.03 Drug induced constipation (principal); R10.84 Generalized abdominal pain; F11.20 Opioid dependence, uncomplicated; F17.200 Nicotine dependence, unspecified, uncomplicated; Z88.5 Allergy status to narcotic agent; Z91.041 Radiographic dye allergy status; Z88.8 Allergy status to other drugs, medicaments and biological substances; Z91.040 Latex allergy status
CPT/HCPCS: 36415; 74022; 80053; 83605; 83690; 83735; 85025; 85610; 96361; 96374; 96375; 96376; 99285; J2060; J3010; J7030